=== PATIENT | female | born 1990 | race African-American/Black ===

== ENCOUNTER 2020-04-18 05:03 | Inpatient (IN) | payer OTHER ==
--- NOTE | 2020-04-17 13:19 | History and Physical Report ---
History of Present Illness Date of examination: 04/11/20 Chief complaint: scheduled section History of present illness: Pt is a 29 year old female [place] 04/24/20 at 39w1d with a h/o one prior who presents for scheduled repeat . She denies vaginal bleeding or leakage of fluid and reports irregular contraction. 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 She is GBS negative. Past History Past Medical History: asthma Past Surgical History: section Family/Genetic History: diabetes, heart disease, hypertension, cancer Social history: no significant social history - Obstetrical History Expected Date of Delivery: 04/24/20 Actual Gestation: 39 Week(s) 0 Day(s) : 3 Para: 1 Hx # Term Pregnancies: 1 Number of Pregnancies: 0 Spontaneous Abortions: 1 Induced : 0 Number of Living Children: 1 Medications and Allergies Allergies Allergy/AdvReac Type Severity Reaction Status Date / Time No Known Allergies Allergy Unverified 04/07/20 23:20 Active Meds: Active Medications Citric Acid/Sodium Citrate (Bicitra) 30 ml PO ONCE ONE Stop: 04/18/20 05:01 Famotidine (Pepcid) 20 mg IV ONCE ONE Stop: 04/18/20 05:01 Oxytocin/Sodium Chloride (Pitocin/Ns 20 Unit/1000ml Drip) 20 units in 1,000 mls @ 0 mls/hr IV TITR VASQUEZ Lactated Ringer's (Lactated Ringers) 1,000 mls @ 2,250 mls/hr IV PREOP VASQUEZ Stop: 04/19/20 05:27 Metoclopramide HCl (Reglan) 10 mg IV ONCE ONE Stop: 04/18/20 05:01 Review of Systems All systems: negative - Physical Exam Breasts: Positive: deferred Abdomen: Positive: soft (gravid ) Uterus: Positive: enlarged (gravid ) Extremities: Positive: normal - Obstetrical FHR: auscultation normal Uterine Contraction Monitor Mode: External Uterine Contraction Pattern: Irregular Uterine Tone Measurement Phase: Resting Results All other labs normal. Assessment and Plan A: IUP at 39w1d Previous x 1 Glucose Intolerance H/o Preeclampsia in prior GBS Negative P: Proceed with repeat section and other indicated procedures.
[~2020-04-18 05:03] MED LIST: BICITRA ORAL LIQD 30ML PO ONE; BUDESONIDE 0.5 MG/2 ML NEBU IH ONE; FAMOTIDINE 20 MG/2 ML INJ IV ONE; METOCLOPRAMIDE 10 MG/2 ML INJ IV ONE; OXYTOCIN 20 UNIT/1000ML DRIP 20 UNITS/1,000 ML BAG IV SCH; ceFAZolin/Water 2 GM/20 ML 2 GM/20 ML SYRINGE IV NR; cefTRIAXone/NS 2 GM/100 ML 2 GM/100 ML BAG IV ONE; methylPREDNISolone Sod Succinate 40 MG/1 ML INJ ONE
[2020-04-18] MEDS: LACTATED RINGERS 1,000 ML IV SCH ×2 (05:54→07:24)
[2020-04-18 07:06] LABS: Hematocrit 37.4 % (30.3-42.9); Hemoglobin 12.7 gm/dl (10.1-14.3); Mean Corpuscular HGB Conc 34 % (30-34); Mean Corpuscular Volume 88 fl (79-97); Platelet Count 221 K/mm3 (140-440); Red Blood Count 4.26 M/mm3 (3.65-5.03); Red Cell Distribution Width 14.1 % (13.2-15.2)
--- NOTE | 2020-04-18 07:09 | Anesthesia Day of Surgery ---
Anesthesia Day of Surgery - Day of Surgery Patient Examined: Yes Patient H&P Reviewed: Yes Patient is NPO: Yes Beta Blockers: No Cardiac Clearance: No Pulmonary Clearance: No Geovanni's Test: N/A
--- NOTE | 2020-04-18 07:11 | Anesthesia Consultation ---
Anesthesia Consult and Med Hx Date of service: 04/18/20 - Airway Anesthetic Teeth Evaluation: Good ROM Head & Neck: Adequate Mental/Hyoid Distance: Adequate Mallampati Class: Class II Intubation Access Assessment: Probably Good - Pulmonary Exam CTA: Yes - Cardiac Exam Cardiac Exam: RRR - Pre-Operative Health Status ASA Pre-Surgery Classification: ASA2 Proposed Anesthetic Plan: Spinal - Pre-Anesthesia Comment Pre-Anesthesia Comments: csectio, breast augmentation, No anesthesia complications - Pulmonary Hx Smoking: Yes (stop 07/2019) Hx Asthma: Yes (LAST ATTACK 3 MONTHS AGO) Hx Respiratory Symptoms: No SOB: Yes (associated with asthmia) COPD: No Home Oxygen Therapy: No Hx Pneumonia: No Hx Sleep Apnea: No - Cardiovascular System Hx Hypertension: No Hx Coronary Artery Disease: No Hx Heart Attack/AMI: No Hx Angina: No Hx Percutaneous Transluminal Coronary Angioplasty (PTCA): No Hx Cardia Arrhythmia: No Hx Pacemaker: No Hx Internal Defibrillator: No Hx Valvular Heart Disease: No Hx Heart Murmur: No Hx Peripheral Vascular Disease: No - Central Nervous System Hx Neuromuscular Disorder: No Hx Seizures: No CVA: No Hx Back Pain: No Hx Psychiatric Problems: No - Gastrointestinal Hx Ulcer: No Hx Gastroesophageal Reflux Disease: No - Endocrine Hx Renal Disease: Yes (KIDNEY STONES) Hx End Stage Renal Disease: No Hx Cirrhosis: No Hx Liver Disease: No Hx Insulin Dependent Diabetes: No Hx Non-Insulin Dependent Diabetes: No Hx Thyroid Disease: No Hx Hypothyroidism: No Hx Hyperthyroidism: No - Hematic Hx Anemia: No Hx Sickle Cell Disease: No - Other Systems Hx Alcohol Use: No Hx Substance Use: No Hx Cancer: No Hx Obesity: No
[2020-04-18] MEDS ORDERED: ONDANSETRON 4 MG/2 ML INJ IV PRN (07:14)
[2020-04-18] MEDS ORDERED: NALOXONE 0.4 MG/1 ML INJ IV PRN ×2 (07:14→10:56)
[2020-04-18] MEDS ORDERED: HYDROmorphone 1 MG/1 ML INJ IV PRN (07:14)
[2020-04-18] MEDS ORDERED: BICITRA ORAL LIQD 30ML PO ONE (08:00)
[2020-04-18] MEDS ORDERED: METOCLOPRAMIDE 10 MG/2 ML INJ IV ONE (08:00)
[2020-04-18] MEDS ORDERED: FAMOTIDINE 20 MG/2 ML INJ IV ONE (08:00)
[2020-04-18] MEDS ORDERED: ONDANSETRON 4 MG/2 ML INJ ONE (08:06)
[2020-04-18] MEDS ORDERED: DEXMEDETOMIDINE 200 MCG/2 ML VIAL IV ONE (08:06)
[2020-04-18] MEDS ORDERED: PHENYLEPHRINE/NS 1,000 MCG/10 ML SYRINGE (OR USE) IV ONE (08:06)
[2020-04-18] MEDS ORDERED: ceFAZolin/STERILE WATER 2 GM/20 ML SYRINGE IV ONE (08:09)
[2020-04-18] MEDS ORDERED: WATER FOR IRRIG STERILE 1,500 ML BOTTLE IR ONE (08:11)
[2020-04-18] MEDS ORDERED: SODIUM CHLORIDE 0.9% IRR 1,500 ML BOTTLE IR ONE (08:11)
[2020-04-18] MEDS ORDERED: LIDOCAINE MPF (2%) 20 MG/1 ML VIAL 5 ML ONE (08:21)
[2020-04-18] MEDS ORDERED: OXYTOCIN 10 UNIT/1 ML INJ ONE (08:23)
--- NOTE | 2020-04-18 09:04 | Procedure Note ---
OB Delivery Note - Delivery Date of Delivery: 04/18/20 Surgeon: JAQCUELYN VASQUEZ Estimated blood loss: other (800 mL) - Section Preop diagnosis: repeat , other (Keloid scar ) Postop diagnosis: same section procedure: section, repeat low transverse, other (Scar Revision ) Disposition: PACU Complications: none Narrative: Please see operative report - A at 1 minute: 8 at 5 minutes: 9 Gender: Female (3237g (7lb 2oz) @ 0824 am)
--- NOTE | 2020-04-18 09:04 | Operative Report ---
Operative Report Operative Report: Date of procedure: April 18, 2020 Preoperative diagnosis: 1) IUP at 39w1d 2) Previous x 1 3) Keloid Scar Postoperative diagnosis: Same Procedure: 1) Repeat low transverse section 2) Scar Revision Surgeon: Kaitlynn Duran M.D. Anesthesia: Regional Findings: 1) Viable female , Apgars 8 and 9, weight 3237 g, (7 lb 2 oz) in cephalic presentation. 2) Normal-appearing uterus ovaries and tubes Estimated blood loss: 800 mL IV fluids: 1900 mL Urine output: 100 mL, clear at the end of the procedure Drains: Joyce to gravity Specimens: None Complications:None. Counts correct x 3 Disposition: Stable to PACU Indication for procedure: Pt is a 29 year old at 39w1d with a history of one prior section who presents for scheduled section. Operation in detail: After the risks, benefits, alternatives and complications were explained to the patient she gave informed consent for the procedure. She was subsequently taken to the operating room where regional anesthesia was noted to be adequate. She was placed in the dorsal supine position with leftward tilt and prepped and draped in a normal sterile fashion. heart tones were noted prior to incision. A timeout was performed. A Pfannenstiel skin incision was made with the knife and carried down to the layer of the fascia with the Bovie. The fascia was incised in the midline and the fascial incision was extended bilaterally with the Bovie. The fascial incision was then stretched. The rectus muscles were then in the midline. The peritoneum was then entered bluntly. The peritoneal incision was extended with good visualization of the bladder. The peritoneal incision was th en stretched. An Arthur retractor was placed. The bladder blade was then placed. A transverse incision was made in the lower uterine segment with a knife and extended bilaterally with the bandage scissors. Amniotomy was performed with egress of clear fluid. head delivered with ease, followed by shoulders and body. bulb suctioned at delivery. Cord clamped and cut. handed to NICU staff in attendance. Cord blood was collected. The placenta was then delivered manually. The uterus was then exteriorized and cleared of all clots and debris. The hysterotomy was then reapproximated with 0 Vicryl in a running locked fashion. A second layer of the same suture was used in imbricating fashion. A figure of eight of 0 Vicryl was placed at the left side of the hysterotomy to ensure hemostasis. The hysterotomy was inspected and hemostasis was noted. The gutters were irrigated and cleared of all clots and debris. The hysterotomy was again inspected and noted to be hemostatic. Surgicel was placed over the hysterotomy. The Arthur retractor was removed. The uterus was placed back into the peritoneal cavity. The peritoneum was reapproximated with 2-0 Vicryl in a running fashion incorporating the rectus muscles. Surgicel was placed over the rectus muscles. The fascia was reapproximated with 0 Vicryl in a running fashion. The keloid scar was excised in an ellipitical fashion with the knife. The skin was reapproximated with 4-0 Vicryl in a subcuticular fashion. The incision was then covered with steri strips and a pressure dressing. The procedure was then ended. The patient tolerated the procedure well and was taken to the PACU in stable condition. All instrument, lap, and needle counts were correct 3.
[2020-04-18] MEDS ORDERED: WITCH HAZEL/ GLYCERIN PAD TP PRN (10:56)
[2020-04-18] MEDS ORDERED: SIMETHICONE 80 MG CHEW TAB PO PRN (10:56)
[2020-04-18] MEDS ORDERED: OXYTOCIN 20 UNIT/1000ML DRIP 20 UNITS/1,000 ML BAG IV SCH (10:56)
[2020-04-18] MEDS ORDERED: D5W/LACTATED RINGERS 1,000 ML IV SCH (10:56)
[2020-04-18] MEDS ORDERED: LANOLIN/ZINC/DIMETHICONE (LANSINOH) 7 GM TP PRN (10:56)
[2020-04-18] MEDS ORDERED: MORPHINE 4 MG/1 ML INJ IV PRN (10:56)
[2020-04-18] MEDS: KETOROLAC 30 MG/1 ML INJ IV SCH ×3 (13:00→23:42)
[2020-04-18 13:16] LABS: Band Neutrophils # (Manual) 0.3 K/mm3; Giant Platelets Rare; Myelocytes # (Manual) 0.3 K/mm3; Platelet Estimate Consistent w Auto; RBC Morphology Normal; Total Cells Counted 100
[2020-04-18] MEDS: MORPHINE 2 MG/1 ML INJ IV PRN ×2 (14:37→21:14)
[2020-04-18] MEDS: ceFAZolin/NS 1 GM/50 ML 1 GM/50 ML BAG IV SCH ×2 (16:00→23:43)
[2020-04-18] MEDS: FERROUS SULFATE 325 MG TAB PO SCH (16:12)
[2020-04-18] MEDS ORDERED: MAGNESIUM HYDROXIDE (MOM) ORAL LIQD UDC PO PRN (21:00)
[2020-04-18 23:55] LABS: Hematocrit 36.7 % (30.3-42.9); Hemoglobin 12.1 gm/dl (10.1-14.3)
[2020-04-19] MEDS: KETOROLAC 30 MG/1 ML INJ IV SCH (06:34)
--- NOTE | 2020-04-19 08:29 | Progress Note ---
Assessment and Plan A: POD#1 s/p repeat at term P: Routine postop care Subjective - Subjective Date of service: 04/19/20 Principal diagnosis: s/p repeat at term Interval history: No overnight events Patient reports: appetite normal, voiding normally, pain well controlled, flatus, ambulating normally, no bowel movement : doing well Objective - Vital Signs Latest vital signs: Vital Signs Temp Pulse Resp BP BP Pulse Ox 04/19/20 06:01 98.2 F 98 H 18 130/79 97 04/19/20 01:30 98.0 F 91 H 18 116/74 95 04/18/20 21:50 98 F 83 18 105/70 99 04/18/20 16:03 97.5 F L 89 16 119/73 98 04/18/20 12:16 95/53 04/18/20 11:30 97.4 F L 71 18 89/45 96 04/18/20 09:55 79 17 118/68 97 04/18/20 09:40 81 15 91/50 96 04/18/20 09:25 82 15 103/52 96 04/18/20 09:20 81 14 101/56 97 04/18/20 09:15 83 14 92/45 95 04/18/20 09:10 96.1 F L 77 14 101/48 96 Intake and Output 04/18/20 04/19/20 04/19/20 22:59 06:59 14:59 Intake Total 770 360 Output Total 1450 800 Balance -680 -440 Intake: IV 50 ANCEF/NS 1 GM/50 ML 1 gm 50 In 50 ml @ 100 mls/hr IV Q8H [facility] Rx#:[id number] Oral 480 Intake, Free Water 240 360 Output: Urine 1450 800 Indwelling Catheter 1450 Void 800 Other: Total, Intake Amount 480 Total, Output Amount 1000 400 - Exam Breasts: Present: deferred Abdomen: Present: soft Uterus: Present: fundal height at umbilicus Extremities: Present: normal Incision: Present: dressed - Labs Labs: Abnormal lab results 04/18/20 Range/Units 05:54 Lymphocytes % (Manual) 12.0 L (13.4-35.0) % Monocytes % (Manual) 9.0 H (0.0-7.3) % Monocytes # (Manual) 1.0 H (0.0-0.8) K/mm3
[2020-04-19] MEDS ORDERED: MEASLES, MUMPS & RUBELLA 12,500 UNIT/0.5 ML VACCINE SUB-Q ONE (10:00)
[2020-04-19] MEDS ORDERED: DIPHtheria,PERTUSSIS(ACELL),TETANUS VACCINE/PF 0.5 ML VIAL IM ONE (10:00)
[2020-04-19] MEDS: oxyCODONE /ACETAMINOPHEN 5-325MG TAB PO PRN ×2 (11:12→15:45)
[2020-04-19] MEDS: FERROUS SULFATE 325 MG TAB PO SCH (11:12)
--- NOTE | 2020-04-19 15:56 | Post Anesthesia Evaluation ---
- Post Anesthesia Evaluation Patient Participated: Yes Airway Patent: Yes Stable Respiratory Function: Yes Nausea/Vomiting: No Temp > 96.8F: Yes Pain Manageable: Yes Adequeate Hydration: Yes Anesthesia Complications: No Block Receding Appropriately: Yes Patient on Ventilator: No
[2020-04-19] MEDS: IBUPROFEN 800 MG TAB PO PRN (20:06)
[2020-04-20] MEDS: IBUPROFEN 800 MG TAB PO PRN ×2 (04:02→10:40)
--- NOTE | 2020-04-20 08:24 | Progress Note ---
Assessment and Plan A: POD2 s/p rLTCS Vital signs and labs stable P: Discharge to home today Subjective - Subjective Date of service: 04/20/20 Principal diagnosis: s/p repeat at term Interval history: POD2 s/p repat LTCS Patient reports: appetite normal, voiding normally, pain well controlled, flatus, ambulating normally [place]: doing well, nursing well Objective - Vital Signs Latest vital signs: Vital Signs Temp Pulse Resp BP BP Pulse Ox 04/20/20 07:23 98.6 F 100 H 22 123/79 94 04/20/20 04:02 18 04/20/20 00:00 98 F 72 16 103/69 04/19/20 15:39 98.0 F 18 120/78 04/19/20 08:29 97.6 F 20 110/69 Intake and Output 04/19/20 04/20/20 04/20/20 23:59 07:59 15:59 Intake Total 540 Balance 540 Intake: Oral 240 Intake, Free Water 300 Other: Total, Intake Amount 120 Voiding Method Toilet # Voids Void 1 1 - Exam Breasts: Present: pain (nipples sore from prolonged nursing), Lungs: Present: Normal air movement Abdomen: Present: soft. Absent: distention Uterus: Present: firm, fundal height below umbilicus. Absent: bogginess Extremities: Present: normal Incision: Present: dressed
--- NOTE | 2020-04-20 08:25 | Discharge Summary ---
Providers - Providers Date of Admission: 04/18/20 05:03 Date of discharge: 04/20/20 Attending physician: JACQUELYN VASQUEZ 04/18/20 10:56 Consult to [place] [CONS] Routine Reason For Exam: Primary care physician: JACQUELYN VASQUEZ Hospitalization Reason for admission: section, IUP at term Delivery: Procedure: repeat low transverse Incision: normal, dry, intact Other procedures: none complications: none Discharge diagnosis: IUP at term delivered Condition at discharge: Good Disposition: DC-01 TO HOME OR SELFCARE Plan - Discharge Medications Prescriptions: Ferrous Sulfate [Feosol 325 MG tab] 325 mg PO BID #60 tablet Ibuprofen [Motrin] 800 mg PO Q8HR PRN #30 tablet PRN Reason: Pain, Moderate (4-6) oxyCODONE /ACETAMINOPHEN [Percocet 5/325] 1 tab PO Q6HR PRN #40 tablet PRN Reason: Pain - Provider Discharge Summary Activity: routine, no sex for 6 weeks, no heavy lifting 4 weeks, no strenuous exercise Diet: routine Instructions: routine Additional instructions: [] Smoking cessation referral if applicable(refer to patient education folder for contact #) [] Refer to [facility] Booklet Call your doctor immediately for: * Fever > 100.5 * Heavy vaginal bleeding ( >1 pad per hour) * Severe persistent headache * Shortness of breath * Reddened, hot, painful area to leg or breast * Drainage or odor from incision. * Keep incision clean and dry at all times and follow doctor's instructions regarding bathing/showering - Follow up plan Follow up: JACQUELYN VASQUEZ MD [Primary Care Provider] - 14 Days (Please call [facility] to schedule appointment.)
[2020-04-20] MEDS: FERROUS SULFATE 325 MG TAB PO SCH (10:40)
[2020-04-20 16:53] VITALS: BP 117/70
== END 2020-04-20 15:20 | disposition home or self-care (01) | DRG 788 ==
LOC: APU 05:03 → LD 08:37 → OB 10:41
PROVIDERS: ADMIT Obstetrics & Gynecology; ATTEND Obstetrics & Gynecology
PROC: 10D00Z1 Extraction of Products of Conception, Low, Open Approach (ICD-10-PCS; principal; 2020-04-18)
PROC: 3E0234Z Introduction of Serum, Toxoid and Vaccine into Muscle, Percutaneous Approach (ICD-10-PCS; 2020-04-19)
DX: O34.211 Maternal care for low transverse scar from previous cesarean delivery (principal); Z3A.39 39 weeks gestation of pregnancy; Z37.0 Single live birth; O99.52 Diseases of the respiratory system complicating childbirth; Z83.3 Family history of diabetes mellitus; Z82.49 Family history of ischemic heart disease and other diseases of the circulatory system; Z80.9 Family history of malignant neoplasm, unspecified; J45.909 Unspecified asthma, uncomplicated; Z87.442 Personal history of urinary calculi; L91.0 Hypertrophic scar; O75.89 Other specified complications of labor and delivery; Z23 Encounter for immunization
CPT/HCPCS: 36415; 85007; 85014; 85018; 85025; 86592; 86850; 86900; 86901; G0378; A6250; C1765; J0690; J0696; J1885; J2270; J2370; J2405; J2590; J2765; J2920; J3490; J7120; J7121

== ENCOUNTER 2022-02-20 12:28 | Outpatient (CLI) | payer OTHER ==
--- NOTE | 2022-02-20 14:20 | XRay Report ---
Right elbow 3 views INDICATION: Pain IMPRESSION: Alignment appears normal. No joint effusion is seen. No acute fracture or dislocation is seen. Signer Name: Deshawn Cleveland MD Signed: 02/20/2022 2:15 PM Workstation Name: [id number]
== END 2022-02-20 12:29 | disposition home or self-care (01) ==
LOC: XRAY 12:28
PROVIDERS: ATTEND Family Medicine
DX: M25.521 Pain in right elbow (principal)